=== PATIENT | female | born 1955 | race Caucasian/White ===

== ENCOUNTER → 2017-08-03 | Outpatient (CLI) | payer OTHER ==
[~2017-08-03] MED LIST: DOCU-416 PO; HYD2 PO; IBUP-1455 PO; LORA5TAB16 PO; NAPR-1043 PO; OXYC-865 PO; ZOFRAN PO
--- NOTE | 2017-08-03 13:43 | RADIOLOGY IMAGING REPORT ---
FACILITY: [facility] [place] PATIENT NAME: Corina Phillips : 1955 MR: [id number] V: [id number] EXAM DATE: ORDERING PHYSICIAN: WILD BENAVIDES TECHNOLOGIST: Location: [facility] Patient: Corina Phillips : 1955 Visit/Account:[id number] Date of Sevice: 08/03/2017 Exam type: GROIN ULTRASOUND History: Right groin mass Comparison: None. Findings: Multiple images of the right groin were submitted both with and without a Valsalva maneuver.. Bowel was identified protruding into the right inguinal canal with the Valsalva maneuver. IMPRESSION: 1. Finds are consistent with a right inguinal hernia containing bowel. Report Dictated By: Yeny Alves MD at 08/03/2017 1:36 PM Report E-Signed By: Yeny Alves MD at 08/03/2017 1:38 PM WSN:[email or web address]
== END ==
LOC: US 13:02
PROVIDERS: ATTEND Nurse Practitioner Family
DX: K40.30 Unilateral inguinal hernia, with obstruction, without gangrene, not specified as recurrent (principal)
CPT/HCPCS: 76705

== ENCOUNTER 2017-09-17 01:54 | Day surgery (SDC) | payer OTHER ==
[~2017-09-17] VITALS: Ht 166.4 cm; Wt 57.2 kg
[~2017-09-17 01:54] MED LIST changes: +ESTR0.62 PO
[2017-09-17 06:23] LABS: PLATELET COUNT, AUTOMATED 176 K/uL (150-450)
[2017-09-17 06:46] VITALS: BP 115/66
[2017-09-17] MEDS ORDERED: ROPIVACAINE 0.5% 20 ML VIAL ONE (07:03)
[2017-09-17] MEDS ORDERED: PROPOFOL EMUL(*) 10MG/ML 20 ML 20 ML ONE (07:06)
[2017-09-17] MEDS ORDERED: DEXAMETHASONE SOD 4 MG/ML VIAL ONE (07:06)
[2017-09-17] MEDS ORDERED: ONDANSETRON 4 MG/2 ML VIAL ONE (07:06)
[2017-09-17] MEDS ORDERED: LIDOCAINE MPF 1% 5 ML VIAL ONE (07:06)
[2017-09-17] MEDS ORDERED: METOCLOPRAMIDE 10 MG/2 ML SDV ONE (07:06)
[2017-09-17] MEDS ORDERED: ROCURONIUM BROM 10 MG/ML 10 ML ONE (07:07)
[2017-09-17] MEDS ORDERED: SUGAMMADEX SOD 200 MG/2 ML SDV ONE (07:09)
[2017-09-17] MEDS ORDERED: fentaNYL CITR 100 MCG/2 ML AMP ONE ×2 (07:10→09:41)
[2017-09-17] MEDS ORDERED: FAMOTIDINE 20 MG TAB PO ONE (09:30)
[2017-09-17] MEDS ORDERED: ceFAZolin(*) 2GM/D5W 50ML 50 ML IVPB ONE (09:30)
[2017-09-17] MEDS ORDERED: NORMOSOL R SOLN(*) 1000 ML BAG 1,000 ML IV PRN (09:30)
[2017-09-17] MEDS ORDERED: MIDAZOLAM 2 MG/2 ML VIAL IVP PRN (09:30)
[2017-09-17] MEDS ORDERED: LIDOCAINE/SOD BICARB 8.4% SYR ID ONE (09:30)
[2017-09-17] MEDS ORDERED: OXYC-854 PO (09:40)
[2017-09-17] MEDS ORDERED: DOCU-416 PO (09:40)
--- NOTE | 2017-09-17 09:43 | Short(Outpt) Discharge Summary ---
Discharge Summary Reason for Hosp/Final Diag: (1) Right inguinal hernia Status: Chronic Hospital Course & Plan: Robotic right femoral hernia repaired without problems. Departure Discharge to: Home, Self Care Discharge Instructions Home Meds Active Scripts Docusate Sodium (COLACE) 100 Mg Capsule, 1 CAP PO BID, #30 CAP 0 Refills TAKE WITH A FULL GLASS OF WATER Prov:LAILA GONZALES MD 09/17/17 Oxycodone Hcl/Acet 5/325 Mg (ENDOCET 5-325 TABLET) 1 Each Tablet, 1-2 TAB PO Q4H Y for PAIN, #30 TAB 0 Refills Prov:LAILA GONZALES MD 09/17/17 Reported Medications Estrogens, Conjugated 0.625 Mg Tab (PREMARIN 0.625 MG TAB) 0.625 Mg Tablet, 0.625 MG PO Q7DAY, TAB 09/10/17 Follow up Referrals: General Surgery - 10/06/17 @ Surgery, General with Laila Gonzales Md You have a follow up appointment scheduled with Dr. Gonzales on 10/06/17, at 11: 30am. Diet: Regular Activity: No Heavy Lifting Special Instructions: You may remove the white surgical dressings on 09/19/17, then you can shower. After showering, leave the incisions open to air but leave the steristrips in place until they fall off on their own. Do not immerse the incisions for 2 weeks. Avoid any activity that involves straining or lifting more than 10 pounds for 2 weeks after surgery. LAILA GONZALES MD Sep 17, 2017 09:43
--- NOTE | 2017-09-17 09:52 | Post Operative Progress Note ---
Post Operative Progress Note Date: Sep 17, 2017 Time: 09:43 Surgeon: Albina Dictation number: [id number] Anesthesia: GETA by Dr. Acevedo Pre-Op Diagnosis: Right inguinal hernia Post-Op Diagnosis: Right femoral hernia Findings: Right femoral hernia Procedure(s): Robotic right femoral hernia repair Specimen Removed:(May be N/A): None Complications: None Fluids: See anesthesia record Estimated Blood Loss: Minimal Date OP Note Dictated: Sep 17, 2017 Time OP Note Dictated: 09:44 LAILA GONZALES MD Sep 17, 2017 09:52
[2017-09-17 10:50] VITALS: BP 103/60
[2017-09-17 11:15] VITALS: BP 104/66
[2017-09-17 11:25] VITALS: BP 97/55
[2017-09-17 11:27] VITALS: BP 107/58
--- NOTE | 2017-09-17 16:56 | OPERATIVE REPORT 1 ---
EVENT DATE: September 17, 2017 SURGEON: Butch Montemayor MD ANESTHESIOLOGIST: Butch Acevedo MD ANESTHESIA: General endotracheal anesthesia. PREOPERATIVE DIAGNOSIS Right inguinal hernia. POSTOPERATIVE DIAGNOSIS Right femoral hernia. PROCEDURE PERFORMED Robotic right femoral hernia repair with mesh. COMPLICATIONS None. CONDITION Stable. BLOOD LOSS Minimal. FINDINGS Patient had what looked to be a femoral hernia just adjacent medial to the iliac vessels. She did have a cord lipoma going through the internal ring. INDICATIONS This is a 61-year-old female who presented to my office with a right groin bulge. Her exam was consistent with a hernia, and she was requesting to have it repaired. DESCRIPTION OF PROCEDURE Patient was brought to the operating room and placed supine on the operating table. General endotracheal anesthesia was administered, and her abdomen was prepped and draped in a sterile fashion. Timeout was completed. I injected the left subcostal skin with 0.5% ropivacaine plain. I made a transverse 8 mm incision in the left subcostal skin about three fingerbreadths below the costal margin and then inserted a Veress needle into this wound and entered the peritoneal cavity with a Veress needle and insufflated the peritoneal cavity to a pressure of 15 mmHg. After it was insufflated, I used the 8 mm optical trocar with a 5 mm, zero-degree scope, and I entered the insufflated abdomen, inserting the port without any problems. I then removed the trocar and inserted an 8 mm robotic camera through this port, and then under direct visualization, I placed an 8 mm port in the supraumbilical midline and another 8 mm port in the right mid abdomen. I then positioned the table in Trendelenburg, moved the lights out of the way, and then docked the robot and targeted it towards the patient's right groin. Initially when I stuck the camera in, I did check the left groin, and there was no evidence of hernia and no fascial defect or peritoneal bulge in the left groin. After the robot was docked and targeted and the instruments inserted, I scrubbed out, went to the console, and divided the peritoneum from just medial to the anterior superior iliac spine all the way to the midline and then stripped the peritoneum down from the preperitoneal contents. I did this all the way down to below the iliopubic tract, and I also cleaned off the pubic tubercle and Orville ligament. I identified the round ligament and the internal ring, and I cleaned this off. I actually divided the round ligament, placed clips on it proximally and distally, and divided it between the clips in a hemostatic fashion. I then went medial to the cord structures and actually looked in the intraperitoneal site and could still see the hernia sac protruding, and so I pulled it into the peritoneal sac from the peritoneal side and could see this was actually a femoral hernia going just medial to the iliac vessels. I was able to strip it away from the iliac vessels without any problems and create a big pocket for the mesh. Once this was done, I inserted a large, right-sided piece of ProGrip mesh into this space and deployed it so it overlaid the pubic tubercle, Orville ligament, the femoral defect, as well as the whole myopectineal arch, and it laid nice and flat. I held the hernia sac in the peritoneal cavity so it was well away from the mesh, and I could tell that the mesh was between it and the fascial defect. I then sewed the peritoneum back together again with a running V-Loc absorbable suture, and then when this was done, very happy with how everything looks, removed the instruments, undocked the robot, and then scrubbed back in. I did place single 3-0 Vicryl sutures in the patient's fascia and all three 8 mm port sites because she was very thin, and this was easy to do. Then, I closed the skin with 4-0 Monocryl subcuticular sutures. Skin was cleaned, dried, and Steri-Strips were applied, followed by sterile surgical dressings. The patient was then awakened, extubated in the operating room, and transported to the recovery room in stable condition having tolerated the procedure without any apparent problems. JENNIEFR
== END 2017-09-17 10:50 | disposition home or self-care (01) ==
LOC: OR 01:54
PROVIDERS: ATTEND Surgery
DX: K41.90 Unilateral femoral hernia, without obstruction or gangrene, not specified as recurrent (principal)
CPT/HCPCS: 36415; 49550; 85025; J1100; J2001; J2405; J2704; J2765; J2795; J3010; S2900; J0690

== ENCOUNTER → 2018-09-23 | Outpatient (CLI) | payer OTHER ==
[~2018-09-23] MED LIST changes: +OXYC-854 PO
--- NOTE | 2018-09-23 14:33 | RADIOLOGY IMAGING REPORT ---
FACILITY: [facility] - [place] PATIENT NAME: Corina Phillips : 1955 MR: [id number] V: [id number] EXAM DATE: ORDERING PHYSICIAN: WILD BENAVIDES TECHNOLOGIST: Location: [facility] Patient: Corina Phillips : 1955 Visit/Account:[id number] Date of Sevice: 09/23/2018 LIVER HISTORY: History of liver cyst COMPARISON: CT June 19, 2016 FINDINGS: Gallbladder: Multiple tiny nonmobile nonshadowing echogenic foci seen along the gallbladder wall whic h may represent tiny polyps. Liver: There is a 1 x 0.7 x 1.1 cm cyst in the lateral right lobe the liver Common duct: Normal, 5.9 mm diameter. Pancreas: Partially obscured by bowel, visualized aspects unremarkable. Right kidney: Right kidney measures 9 cm in length and appears unremarkable Upper abdominal aorta and IVC: Patent. Ascites: None visualized. IMPRESSION: There is a 1.1 cm right hepatic cyst There multiple tiny nonmobile nonshadowing echogenic foci in the gallbladder wall which may represent polyps Report Dictated By: Yeny Alves MD at 09/23/2018 12:36 PM Report E-Signed By: Yeny Alves MD at 09/23/2018 2:29 PM WSN:[email or web address]
== END ==
LOC: US 00:27
PROVIDERS: ATTEND Nurse Practitioner Family
DX: K76.89 Other specified diseases of liver (principal)
CPT/HCPCS: 76705

== ENCOUNTER → 2018-10-29 | Outpatient (CLI) | payer OTHER ==
--- NOTE | 2018-11-01 09:35 | RADIOLOGY IMAGING REPORT ---
FACILITY: [facility] [place] PATIENT NAME: SARAN AGUERO : [id number] MR: [id number] V: [id number] EXAM DATE: [id number] ORDERING PHYSICIAN: WILD BENAVIDES TECHNOLOGIST: Karen Leahy PROCEDURE: BILATERAL DIGITAL SCREENING MAMMOGRAM WITH CAD ASSISTED INTERPRETATION & 3D TOMOSYNTHESIS REASON FOR STUDY: Screening. FAMILY HISTORY OF BREAST CANCER: Paternal grandmother, Mother at age 82, paternal aunt, paternal cousin. BREAST PROCEDURES/TREATMENTS: None. COMPARISON: 06/23/16, 06/21/15, 05/01/14, 01/31/13, 02/02/12, 01/22/12. VIEWS OBTAINED: 2D & 3D full field CC & MLO. BREAST DENSITY: The breasts are heterogeneously dense which can obscure small masses. MAMMOGRAM FINDINGS: The parenchymal pattern has remained stable allowing for difference in mammographic technique & patient positioning. IMPRESSION: BIRADS 1: Negative. DIAGNOSTIC CATEGORY 1--NEGATIVE. RECOMMENDATIONS: ROUTINE MAMMOGRAM AND CLINICAL EVALUATION. Dictated by: Yeny Alvse M.D. on 10/29/2018 at 15:35 Transcribed by: KYLEE on 11/01/2018 at 8:45 Approved by: Yeny Alves M.D. on 11/01/2018 at 9:34 [facility]
== END ==
LOC: MAMO 01:03
PROVIDERS: ATTEND Nurse Practitioner Family
DX: Z12.31 Encounter for screening mammogram for malignant neoplasm of breast (principal)
CPT/HCPCS: 77063; 77067